=== PATIENT | female | born 1940 | race Two or more races ===

== ENCOUNTER 2017-02-02 19:59 | Emergency (ER) | payer MEDICARE ==
[2017-02-02 23:21] LABS: BASO % 0.2 % (0.2-1.0); EOS % 0.2 % (0.9-2.9); HEMATOCRIT 35.5 % (37.0-47.0); HEMOGLOBIN 11.8 gm/l (12.0-16.0); IMM NEUT # 0.1 K/mm3 (0-0.2); IMM NEUT% 0.9 % (0-1); LYMPH # 2.7 (1.0-4.8); LYMPH % 21.3 % (15-45); MEAN CELL VOLUME 91.3 fl (81.0-99.0); MEAN CORPUSCULAR HEMOGLOBIN 30.3 pg (27.0-31.0); MEAN CORPUSCULAR HGB CONC 33.2 g/dl (33.0-37.0); MEAN PLATELET VOLUME 9.7 fl (7.4-10.4); MONO # 0.8 (0.0-0.8); MONO % 6.2 % (4-12); NEUT % 71.2 % (43-75); PLATELET COUNT 250 K/mm3 (130-400); RED CELL DISTRIBUTION WIDTH 13.2 % (11.5-14.5)
[2017-02-02 23:35] LABS: ALB/GLOB RATIO 1.3 (>1.0); ALBUMIN 3.6 gm/dL (3.5-5.7); CALCIUM 9.1 mg/dL (8.6-10.3)
--- NOTE | 2017-02-03 08:43 | RAD ---
CHEST - 2 VIEWS COMPARISON: Chest 2 views, 05/01/2014 HISTORY: Shortness of breath and chest pain for 6 weeks. FINDINGS: Views: Frontal and lateral chest Lungs: Hyperinflated and clear. Heart and vessels: Normal Trachea and bronchi: Normal Mediastinum and tammy: Normal Costophrenic sulci: Normal Chest wall and bones: No change. Thoracic hyperkyphosis. Upper abdomen: Surgical clips in right upper quadrant. IMPRESSION: No acute finding. Chronic obstructive pulmonary disease.
== END 2017-02-03 00:34 | disposition home or self-care (01) ==
LOC: ED 19:59
DX: R06.02 Shortness of breath (principal); J44.9 Chronic obstructive pulmonary disease, unspecified; J45.909 Unspecified asthma, uncomplicated; I10 Essential (primary) hypertension; E03.9 Hypothyroidism, unspecified; E11.9 Type 2 diabetes mellitus without complications; Z79.84 Long term (current) use of oral hypoglycemic drugs